=== PATIENT | male | born 2005 | race African-American/Black ===

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

== ENCOUNTER 2025-02-26 23:13 | Emergency (ER) | payer MEDICAID ==
[2025-02-26 23:53] VITALS: PULSE 87; RESP 18; O2SAT 97
== END 2025-02-27 01:50 | disposition left against medical advice (07) ==
LOC: ER 23:13
DX: R51.9 Headache, unspecified (principal); Z53.21 Procedure and treatment not carried out due to patient leaving prior to being seen by health care provider